=== PATIENT | male | born 1975 | race Caucasian/White ===

== ENCOUNTER 2025-03-17 06:11 | Day surgery (SDC) | payer OTHER, SELFPAY ==
[2025-02-18 09:29] LABS: Hematocrit 46.3 % (39.0-52.0); Hemoglobin 15.7 g/dL (13.0-18.0); Mean Corp Hgb Conc. 33.9 g/dL (33.0-37.0); Mean Corpuscular Volume 89.6 fL (80.0-94.0); Nucleated Red Blood Cells % 0 % (-); Platelet Count 239 10^3/uL (130-400); Red Cell Dist. Width 12.0 % (11.5-14.5)
[2025-02-18 09:47] LABS: Blood Urea Nitrogen 27 mg/dl (9-20); Calcium 9.8 mg/dl (8.4-10.2); Carbon Dioxide 27 mmol/L (22-30); Chloride 107 mmol/L (98-107); Glucose 119 mg/dl (70-99); Potassium 4.7 mmol/L (3.5-5.1); Sodium 141 mmol/L (135-145); eGFR > 60.00
[2025-02-18 13:55] VITALS: BMI 24.2
[2025-03-17] VITALS (7 sets, daily range): BP systolic 110–141; BP diastolic 75–98; BMI 24.2
[2025-03-17] MEDS: NORMOSOL-R/PLASMALYTE-A 1000 IV (12:24)
--- NOTE | 2025-03-17 15:40 | W.IMMPOSTOP ---
Surgical Immed Post Op Note
-
Primary Surgeon: Tristan Carrillo MD
Assisting Surgeon:
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
Post-op Diagnosis: left knee osteochondral allograft nonunion
Procedure Performed: arthroscopic left knee allograft internal fixation
Anesthesia Type: general
Specimen / Cultures: none
Estimated Blood Loss: 1mL
Complications: none apparent
Tourniquet time: 33 minutes @ 250mm Hg
Operative Findings: intact menisci and cruciate ligaments, allograft without stepoff, grade 1 chondrosis of the patella
Implants: Sukhjinder partially threaded headless compression screws: 24mm, 20mm X2
Operative dictation #: [id number]
[2025-03-17] MEDS: DILAUDID 0.5 MG IV (16:11)
[2025-03-17] MEDS: ROXICODONE 5 MG PO (17:24)
[2025-03-17] MEDS: TYLENOL 650 MG PO (17:25)
== END 2025-03-17 17:48 | disposition home or self-care (01) ==
LOC: SDS 06:11
PROVIDERS: ATTENDING PHYSICIAN Student in an Organized Health Care Education/Training Program
DX: T84.89XA Other specified complication of internal orthopedic prosthetic devices, implants and grafts, initial encounter (principal); M17.32 Unilateral post-traumatic osteoarthritis, left knee; M93.862 Other specified osteochondropathies, left lower leg; Y79.3 Surgical instruments, materials and orthopedic devices (including sutures) associated with adverse incidents; Y83.2 Surgical operation with anastomosis, bypass or graft as the cause of abnormal reaction of the patient, or of later complication, without mention of misadventure at the time of the procedure; Y99.0 Civilian activity done for income or pay
CPT/HCPCS: 29999; 36415; 73560; 76000; 80048; 85025; C1713